=== PATIENT | male | born 1995 | race American Indian/Alaskan Native ===

== ENCOUNTER 2021-03-24 20:13 | Emergency (ER) | payer BC ==
[2021-03-24 21:15] VITALS: BP 130/79
--- NOTE | 2021-03-24 23:03 | Emergency Department Report ---
ED Male HPI - General Chief complaint: Rectal Pain Stated complaint: ANAL DISCOMFORT Time Seen by Provider: 03/24/21 22:43 Source: patient Mode of arrival: Ambulatory Limitations: No Limitations - History of Present Illness Initial comments: This is a 25-year-old male nontoxic, well nourished in appearance, no acute signs of distress presents to the ED with c/o of acute on chronic intermittent rectal itching x 4 months. Patient stated recently seen a provider in urgent care and had negative gonorrhea and chlamydia swabs. Patient denies any rectal pain or bleeding. Denies any urinary symptoms. Denies any abdominal pain, pelvic pain, nausea, vomiting chest pain or SOB. Denies any other complaints or symptoms. Patient denies any allergies. -: month(s) Radiation: none Severity scale (0 -10): 0 Consistency: intermittent Improves with: none Worsens with: none denies other symptoms. denies: discharge, swelling, mass, rash, urinary retention, blood in urine, dysuria, fever, nausea/vomiting, incontinence - Related Data Previous Rx's Medication Instructions Recorded Last Taken Type Hydrocortisone 1% [Hydrocortisone 1 applicatio TP BID PRN 5 Days #1 03/24/21 Unknown Rx 1% CREAM] tube ED Review of Systems ROS: Stated complaint: ANAL DISCOMFORT Other details as noted in HPI Comment: All other systems reviewed and negative Constitutional: denies: chills, fever Eyes: denies: eye pain, eye discharge, vision change ENT: denies: ear pain, throat pain Respiratory: denies: cough, shortness of breath, wheezing Cardiovascular: denies: chest pain, palpitations Endocrine: no symptoms reported Gastrointestinal: denies: abdominal pain, nausea, diarrhea Genitourinary: denies: urgency, dysuria Musculoskeletal: denies: back pain, joint swelling, arthralgia Skin: denies: rash, lesions Neurological: denies: headache, weakness, paresthesias Psychiatric: denies: anxiety, depression Hematological/Lymphatic: denies: easy bleeding, easy bruising ED Past Medical Hx - Past Medical History Previous Medical History?: Yes Hx HIV: Yes - Surgical History Past Surgical History?: No - Medications Home Medications: Home Medications Medication Instructions Recorded Confirmed Last Taken Type Hydrocortisone 1% [Hydrocortisone 1 applicatio TP BID PRN 5 Days #1 03/24/21 Unknown Rx 1% CREAM] tube ED Physical Exam - General Limitations: No Limitations General appearance: alert, in no apparent distress - Head Head exam: Present: atraumatic, normocephalic - Eye Eye exam: Present: normal appearance - Neck Neck exam: Present: normal inspection, full ROM. Absent: lymphadenopathy - Respiratory Respiratory exam: Absent: respiratory distress - Cardiovascular Cardiovascular Exam: Present: regular rate - GI/Abdominal GI/Abdominal exam: Present: soft, normal bowel sounds. Absent: distended, tenderness, guarding, rebound, rigid - Rectal Rectal exam: Present: normal inspection, normal rectal tone. Absent: decreased rectal tone, heme (+) stool, black stool, bloody stool, fecal impaction, hemorrhoids, mass, tenderness, normal prostate, prostate tenderness, prostate enlargement - Extremities Exam Extremities exam: Present: full ROM - Back Exam Back exam: Present: full ROM - Neurological Exam Neurological exam: Present: alert, oriented X3, normal gait - Psychiatric Psychiatric exam: Present: normal affect, normal mood - Skin Skin exam: Present: warm, dry, intact, normal color. Absent: rash ED Course Vital Signs 03/24/21 21:13 Temperature 98.4 F Pulse Rate 57 L Respiratory 18 Rate Blood Pressure 130/79 O2 Sat by Pulse 99 Oximetry - Reevaluation(s) Reevaluation #1: 03/24/21 23:04 Patient is speaking in full sentences with no signs of distress noted. ED Medical Decision Making - Medical Decision Making This is a 25-year-old male that presents with rectal itching. Patient is stable and was examined by me. Patient be treated with hydrocortisone cream. Physical exam otherwise is unremarkable. Patient was instructed to follow-up with a primary care doctor in 3-5 days or if symptoms worsen and continue return to emergency room as soon as possible. At time of discharge, the patient does not seem toxic or ill in appearance. No acute signs of distress noted. Patient agrees to discharge treatment plan of care. No further questions noted by the patient. Critical care attestation.: If time is entered above; I have spent that time in minutes in the direct care of this critically ill patient, excluding procedure time. ED Disposition Clinical Impression: Rectal itching Disposition: HOME / SELF CARE / HOMELESS Is pt being admited?: No Does the pt Need Aspirin: No Condition: Stable Instructions: Anal Pruritus, [id number] Additional Instructions: Follow-up with a primary care doctor in 3-5 days or if symptoms worsen and continue return to emergency room as soon as possible. Prescriptions: Hydrocortisone 1% [Hydrocortisone 1% CREAM] 1 applicatio TP BID PRN 5 Days #1 tube PRN Reason: rectal itching Referrals: PRIMARY CARE, [Referring] - 3-5 Days MIKE GAMBOA MD [Staff Physician] - 3-5 Days Forms: Work/School Release Form(ED) Time of Disposition: 23:09
== END 2021-03-24 23:56 | disposition home or self-care (01) ==
LOC: ED 20:13
DX: L29.0 Pruritus ani (principal)
CPT/HCPCS: 99282